=== PATIENT | female | born 1995 | race Two or more races ===

== ENCOUNTER 2022-12-28 08:51 | Outpatient (CLI) | payer OTHER | END 2022-12-28 08:53 | disposition home or self-care (01) | LOC: PRENATAL 08:51 | PROVIDERS: ATTEND Obstetrics & Gynecology Maternal & Fetal Medicine | DX: O36.80X0 Pregnancy with inconclusive fetal viability, not applicable or unspecified (principal); Z36.82 Encounter for antenatal screening for nuchal translucency; Z3A.11 11 weeks gestation of pregnancy ==

== ENCOUNTER 2023-03-04 07:58 | Outpatient (CLI) | payer OTHER | END 2023-03-04 08:15 | disposition home or self-care (01) | LOC: PRENATAL 07:58 | PROVIDERS: ATTEND Obstetrics & Gynecology Maternal & Fetal Medicine | DX: O35.3XX0 Maternal care for (suspected) damage to fetus from viral disease in mother, not applicable or unspecified (principal); O44.00 Complete placenta previa NOS or without hemorrhage, unspecified trimester; Z3A.20 20 weeks gestation of pregnancy ==

== ENCOUNTER 2023-05-13 15:17 | Outpatient (CLI) | payer OTHER | END 2023-05-13 15:18 | disposition home or self-care (01) | LOC: PRENATAL 15:17 | PROVIDERS: ATTEND Obstetrics & Gynecology Maternal & Fetal Medicine | DX: O26.849 Uterine size-date discrepancy, unspecified trimester (principal); O36.8199 Decreased fetal movements, unspecified trimester, other fetus; Z3A.30 30 weeks gestation of pregnancy ==

== ENCOUNTER 2023-05-20 13:55 | Outpatient (CLI) | payer OTHER ==
[2023-05-20] MEDS ORDERED: BETAMETHASONE ACETATE,SOD PHOS 30 MG/5 ML ML ONE (14:14)
[2023-05-20] MEDS ORDERED: ADULT LOW DOSE81 M1 PO (14:23)
[2023-05-20] MEDS ORDERED: PRENATAL TABLE1 EAC1 PO (14:24)
[2023-05-20] MEDS ORDERED: BETAMETHASONE ACETATE,SOD PHOS 30 MG/5 ML ML IM ONE (15:00)
[2023-05-20 15:04] LABS: PH,URINE 5.5 (5.0-8.0); URINE APPEARANCE Clear; URINE BILIRRUBIN Negative (NEGATIVE); URINE BLOOD Trace; URINE COLOR Yellow; URINE GLUCOSE Negative (NEGATIVE); URINE LEUKOCYTE Trace; URINE NITRATE Negative; URINE PROTEIN Negative (NEGATIVE)
[2023-05-20 15:05] LABS: HEMATOCRIT 32.8 % (36.0-45.00); HEMOGLOBIN 11.3 g/dL (12.0-15.00); MEAN CELL VOLUME 81.5 fL (80.00-100.00); MEAN CORPUSCULAR HGB CONC 34.4 g/dl (32.0-36.0); PLATELET COUNT 297 K/uL (150-450); RED BLOOD COUNT 4.03 M/uL (4.00-6.00); RED CELL DISTRIBUTION WIDTH 13.5 % (11.5-14.5)
[2023-05-20 15:07] LABS: URINE BACTERIA 1354.2 uL (0.0-1933); URINE EPITHELIAL CELLS 15.1 uL (0.0-38.8); URINE WBC 62.2 uL (0.0-23.2)
[2023-05-20 15:43] LABS: ALBUMIN 2.8 gm/dL (3.4-5.0); BILIRUBIN TOTAL 0.26 mg/dL (0.3-1.2); CALCIUM 8.7 mg/dL (8.5-10.1); CREATININE SERUM 0.72 mg/dL (0.55-1.02); GFR 95.11; GLOBULINA 3.6 G/DL (2.4-3.5); POTASSIUM 3.91 mEq/L (3.5-5.1); TOTAL PROTEIN 6.4 gm/dL (6.4-8.2)
[2023-05-21] MEDS ORDERED: BETAMETHASONE ACETATE,SOD PHOS 30 MG/5 ML ML IM ONE (14:15)
[2023-05-21 14:50] LABS: URINE PROT QUANT 24HR 14.5 MG/DL
== END 2023-05-21 16:42 | disposition home or self-care (01) ==
LOC: OBS/DEL 13:55
PROVIDERS: ATTEND General Practice
DX: O16.3 Unspecified maternal hypertension, third trimester (principal); Z3A.31 31 weeks gestation of pregnancy

== ENCOUNTER → 2023-05-27 | Outpatient (CLI) | payer OTHER ==
[~2023-05-27] MED LIST: ADULT LOW DOSE81 M1 PO; PRENATAL TABLE1 EAC1 PO
== END | disposition home or self-care (01) ==
LOC: NST 13:17
PROVIDERS: ATTEND General Practice
DX: Z34.83 Encounter for supervision of other normal pregnancy, third trimester (principal)

== ENCOUNTER 2023-06-03 09:21 | Outpatient (CLI) | payer OTHER | END 2023-06-03 10:07 | disposition home or self-care (01) | LOC: NST 09:21 | PROVIDERS: ATTEND General Practice | DX: Z34.83 Encounter for supervision of other normal pregnancy, third trimester (principal) ==

== ENCOUNTER 2023-06-13 10:41 | Outpatient (CLI) | payer OTHER | END 2023-06-13 10:42 | disposition home or self-care (01) | LOC: PRENATAL 10:41 | PROVIDERS: ATTEND Obstetrics & Gynecology Maternal & Fetal Medicine | DX: O26.849 Uterine size-date discrepancy, unspecified trimester (principal); O36.8199 Decreased fetal movements, unspecified trimester, other fetus; O10.019 Pre-existing essential hypertension complicating pregnancy, unspecified trimester; Z3A.35 35 weeks gestation of pregnancy ==

== ENCOUNTER 2023-06-13 16:07 | Outpatient (CLI) | payer OTHER | END 2023-06-13 17:23 | disposition home or self-care (01) | LOC: NST 16:07 | PROVIDERS: ATTEND General Practice | DX: Z34.83 Encounter for supervision of other normal pregnancy, third trimester (principal) ==